=== PATIENT | female | born 1990 | race Caucasian/White ===

== ENCOUNTER 2023-12-19 12:14 | Outpatient (CLI) | payer BC, SELFPAY ==
--- NOTE | 2023-12-19 13:13 | P.LACCB_ITS ---
Consult Note - Mom Date of Visit Date of visit: 12/19/23 government operations consultant: Lilia Calderon Visit Code: Visit Patient's Information Phone number: [phone] Para: 1 Allergies No Known Drug Allergies Allergy (Verified 12/19/23 13:14) Work Plans: works 5 days/week; offices from home 2 days/week Baby's Information Baby's Age at Visit: 9.5months (baby not present for visit) Baby's Provider or Clinic: [facility] Reason for Consult Reason for Consult: Received referral from Riya Starks to see this mom with sore left nipple and fissure where nipple attaches to areola. This started the end of November 2023, mom does not recall any trauma that instigated it all, but also wouldn't rule it out as she is nursing her 9 month old who is busy and distracted during nursing ses sions. Baby has 2 bottom teeth and 2 eye teeth coming in (2 front teeth have not yet erupted). Mom reports the week of December 03 her symptoms got a bit better as she was nursing more since she was home from work and pumping makes the pain worse and the fissure wider. The week of December 07, she started with increased nipple pain, again worse with pumping than feeding at the breast. By December 14, pain had increased even more and she was referred for evaluation. Recently switched flange size from 24mm down to 22mm with some relief. During pumping session here in office, can see where fissure separates some while pumping, even on low setting. Past Experience Past Experience: No Current Frequency of Day Feedings: Feeding 2 times a day on work days, 5 times on nonwork days Both Breasts: Yes Length of Time: 10-15 minutes Goals: 2 years Pumping Pumping: Yes Quantity Pumped: 4-6 oz, left side makes a bit more than right; pumping 3x/day when works Breast/Nipple Condition Breast Information: has generally not had any issues with ; wondered about a yeast infection back in Jul 2023, used Clotrimazole for a few days and then stopped. Pain stopped and never returned. Current issue developed in November 23. Engorgement: No Maternal Nipple Condition - Left: Common Nipple and Cracking/ Fissures (along top of nipple near areola, about 4-5 mm long;new area of redness above nipple on left breast just since last night, in the shape of a lip print, looks very surface; not really painful, but itchy per mom) Maternal Nipple Condition - Right: Common Nipple Interventions for Sore Nipples: Lansinoh and Soothies Onsite Pre-Nursing Right Nipple: Within Normal Limits Post-Nursing Left Nipple: Redness (while pumping and nipple drawing into flange, can see separation/opening of fissure) Post-Nursing Right Nipple: Within Normal Limits Assessments/Interventions Assessments/Interventions: Recommend taking a break from pumping on left side since this aggravates fissure more than nursing. Expect this wound could take 2-4 weeks to heal fully and need to protect milk supply in the process: Discussed hand expression on left side while pumping on right side, resource given for review. Could also try Haakaa and see if this relieves fullness of breast with less trauma to the nipple. May want to follow up Haakaa use with hand expression as well for more complete emptying. If baby is nursing well and mom has less pain, baby may have deep enough latch that she is not overstretching nipple and therefore causing less trauma. Saline wash to nipple after feedings for gentle cleansing until wound healed (1 tsp salt to 8 oz water), dab dry (no rubbing). Discussed APNO as an option for OTC treatment; itchy symptoms may be indicative of thrush developing and concerned with open wound/portal of entry. 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 Discussed option of Silverettes for healing. Mom may try now, or opt for other options outlined for 3-4 days and see if she begins getting relief; discussed Silverettes may allow for quicker healing. When does resume pumping, consider adding in one pump/day for 3 days to monitor any resurgence of fissure and need for adjustment of plan. (Measured for flange size - per measurement, would expect she would need 24 mm, but if pain is worse wit 24mm, continue with 22mm at least for now since no issue on right side, and issue arose using larger size) Time spent on visit 45 minutes. Meds Home Medications and Allergies Allergies Allergy/AdvReac Type Severity Reaction Status Date / Time No Known Drug Allergies Allergy Verified 12/19/23 13:14
== END 2023-12-19 12:15 | disposition home or self-care (01) ==
PROVIDERS: PCP Family Medicine; Visit Provider Family Medicine
DX: Z39.1 Encounter for care and examination of lactating mother (principal)
CPT/HCPCS: G0463